=== PATIENT | male | born 1965 | race Caucasian/White ===

== ENCOUNTER → 2023-05-11 | Outpatient (CLI) | payer BC ==
--- NOTE | 2023-05-11 12:31 | XR ---
EXAMINATION TYPE: XR KUB DATE OF EXAM: 05/11/2023 11:45 AM CLINICAL INDICATION:Male, 58 years old with history of N20.1 CALCULUS OF URETER; COMPARISON: None. TECHNIQUE: One radiographic view of the abdomen was obtained. FINDINGS: The bowel gas pattern is nonspecific without dilated loops of small or large bowel. There i s no evidence for organomegaly or pneumoperitoneum. The osseous structures are intact. Fecal mater ial and gas are demonstrated throughout the colon and rectum. Multiple suspected pelvic phleboliths. Left calculus over the psoas muscle measuring 5 mm IMPRESSION: 1. Suspected Left ureteral calculus projects over the psoas muscle measuring 5 cm. 2. Nonspecific bowel gas pattern without radiographic evidence for acute process.
== END | disposition home or self-care (01) ==
LOC: RADXRMAIN 11:31
PROVIDERS: ATTEND Urology
DX: N20.1 Calculus of ureter (principal)
CPT/HCPCS: 74018

== ENCOUNTER 2023-05-14 07:47 | Day surgery (SDC) | payer BC ==
--- NOTE | 2023-05-13 20:56 | P.GSHP ---
History of Present Illness H&P Date: 05/11/23 Chief Complaint: Left renal colic The patient is a 58-year-old white male with a history of urolithiasis. He recently presented with a 1 week history of left flank pain. CT scan showed mild left hydronephrosis due to a 7 mm left proximal ureteral calculus. He was offered the options of medical expulsive therapy, ureteroscopic removal of the calculus, and extracorporal shockwave lithotripsy (ESWL). After weighing the pros and cons of each, he has elected to undergo ESWL and comes for this reason. - Constitutional Constitutional: Denies chills, Denies fever - Gastrointestinal Gastrointestinal: Reports nausea - Genitourinary (Male) Genitourinary: Reports flank pain, Reports hematuria, Reports kidney stones Past Medical History Past Medical History: Hypertension Additional Past Medical History / Comment(s): kidney stones History of Any Multi-Drug Resistant Organisms: None Reported Past Surgical History: No Surgical Hx Reported Past Anesthesia/Blood Transfusion Reactions: No Reported Reaction Smoking Status: Never smoker - Past Family History Father Family Medical History: No Reported History Medications and Allergies Home Medications Medication Instructions Recorded Confirmed Type Bisoprolol/Hydrochlorothiazide 5 - 6.25 mg PO DAILY 05/11/23 05/11/23 History [Bisoprolol/Hydrochlorothiazide 5-6.25 mg] Gabapentin [Neurontin] 100 mg PO DAILY 05/11/23 05/11/23 History Hydroco/Apap 10 - 325 mg PO Q4H PRN 05/11/23 05/11/23 History Ondansetron Odt [Zofran Odt] 4 mg PO DAILY PRN 05/11/23 05/11/23 History Sulfamethoxazole-Tmp 1 tab PO Q12H 05/11/23 05/11/23 History Tamsulosin [Flomax] 0.4 mg PO DAILY 05/11/23 05/11/23 History Allergies Allergy/AdvReac Type Severity Reaction Status Date / Time No Known Allergies Allergy Verified 05/11/23 14:36 Surgical - Exam - General well developed, well nourished, no distress - Respiratory normal respiratory effort - Abdomen Abdomen: soft, non tender, no guarding, no rigid, no rebound Hernia: umbilical - Genitourinary normal penis with no external lesions, testicles non-tender - Psychiatric oriented to time, oriented to person, oriented to place, speech is normal, memory intact Results - Imaging Abdominal x-ray: report reviewed, image reviewed CT scan - abdomen: report reviewed, image reviewed Assessment and Plan (1) Calculus of ureter Status: Acute Code(s): N20.1 - CALCULUS OF URETER SNOMED Code(s): 68607328 Plan: I discussed with the patient the treatment of the calculus with ESWL. I explained the possible need for repeat ESWL or alternative treatment in the event of treatment failure or incomplete fragmentation. I discussed the risks of ESWL, including anesthesia, collateral damage to other organs, and [place]. The possible need for a secondary intervention such as a stent or ureteroscopy was discussed. The patient understands that due to the constraints of the lithotriptor schedule that the procedure will be performed by Dr. Morel.
[~2023-05-14 07:47] MED LIST: LIDOCAINE 1% (10MG/ML) FOR IV START INTRADERMA PRN; fentaNYL (PF) 50 MCG/ML 2 ML AMP IV PRN
--- NOTE | 2023-05-14 08:17 | XR ---
EXAMINATION TYPE: XR KUB DATE OF EXAM: 05/14/2023 COMPARISON: 10/11/2023 HISTORY: Preop left-sided kidney stones TECHNIQUE: One view abdominal series FINDINGS: The osseous structures are intact. The bowel gas pattern is nonspecific. Vague 5 mm calcification ov erlying the left transverse process L3. Additional calcifications in the pelvis likely vascular. Arthropathy of the hips. IMPRESSION: 1. Findings suspicious for left proximal ureteral calculus..
[2023-05-14] MEDS: LACTATED RINGERS 1,000 ML IV SCH (09:13)
[2023-05-14] MEDS: ONDANSETRON 4 MG/2 ML VIAL IVP ONE (09:19)
[2023-05-14 09:26] VITALS: TEMP 98.4
--- NOTE | 2023-05-14 09:47 | P.OP ---
Date of Procedure: 05/14/23 Preoperative Diagnosis: Left renal calculus with colic Postoperative Diagnosis: No stone identified on KUB and fluoroscopy Procedure(s) Performed: No surgical procedure Anesthesia: none Surgeon: Marck Morel Disposition: PACU Indications for Procedure: Patient is 58. He was identified with a 5 mm left renal stone. He saw who obtained a KUB identifying the stone in the region of the left kidney. Last pain was yesterday. A KUB today was performed and the stone was not easily identified. We'll do fluoroscopy to see if the stone is identifiable for shockwave. Description of Procedure: The patient is brought to the operating suite and placed on the lithotripsy table. Lengthy fluoroscopy is performed of the left kidney and proximal ureter in order to identify the stone but we are unable to do so. The procedure was canceled. No sedation was given. This has been discussed with the patient and his . If the pain returns he will probably either need another CAT scan or to proceed with cystoscopy retrograde pyelogram and probable ureteroscopy.
[2023-05-14] MEDS: HYDROcodone/APAP 5-325MG 1 EACH TAB PO ONE (09:50)
[2023-05-14] MEDS ORDERED: HYDROcodone/APAP 5-325MG 1 EACH TAB ONE (09:50)
[2023-05-14 10:01] VITALS: RESP 16
[2023-05-14 10:35] VITALS: BP 144/90; PULSE 74
== END 2023-05-14 10:32 | disposition home or self-care (01) ==
LOC: ORWHC2ENDO 07:47
PROVIDERS: ATTEND Urology
DX: Z53.8 Procedure and treatment not carried out for other reasons (principal); N20.0 Calculus of kidney; I10 Essential (primary) hypertension; Z79.899 Other long term (current) drug therapy
CPT/HCPCS: 74018; J2405

== ENCOUNTER → 2023-05-21 | Outpatient (CLI) | payer BC ==
--- NOTE | 2023-05-21 11:03 | XR ---
EXAMINATION TYPE: XR KUB DATE OF EXAM: 05/21/2023 COMPARISON: 05/14/2023 HISTORY: Pain TECHNIQUE: One view abdominal series FINDINGS: The osseous structures are intact. The bowel gas pattern is nonspecific. Calcifications in the pelvi s are likely vascular. No suspicious calcifications overlying the renal outlines. Previously noted vague calcification overl julianna the renal 3 left transverse process no longer identified. IMPRESSION: 1. Calcification overlying the transverse process of L3 on the prior exam is no longer seen correlate to recently passed stone. 2. Pelvic calcifications are stable and felt most likely vascular.
== END | disposition home or self-care (01) ==
LOC: RADXRMAIN 10:45
PROVIDERS: ATTEND Urology
DX: N20.0 Calculus of kidney (principal)
CPT/HCPCS: 74018